=== PATIENT | female | born 1980 | race Caucasian/White ===

== ENCOUNTER 2016-06-12 20:06 | Emergency (ER) | payer SELFPAY ==
[~2016-06-12] VITALS: Ht 165.1 cm; Wt 99.8 kg
[~2016-06-12 20:06] MED LIST: ASPI-482 PO; SULF1TAB24 PO; TRIA15OI TP
[2016-06-12 20:30] VITALS: BP 104/51
--- NOTE | 2016-06-12 22:51 | PHYS DOC ---
Past Medical History Past Medical History: Anemia, Asthma Past Surgical History: Tonsillectomy, Tubal ligation Additional Past Surgical Histo: adnoids, right leg(hardware) Smoking: Less than 1pk/day Alcohol Use: None Drug Use: None Adult General Chief Complaint Chief Complaint: MECHANICAL FALL HPI HPI Patient is a 36 year old female who presents with right lower leg pain and swelling since fall 3 weeks ago. The patient relates that she slipped on the ice and hit her right lower leg on her concrete steps. She has been ambulatory since the injury. She is concerned that the hardware previously placed in her lower leg has become dislodged. She has not taken any home medications. She does not have a PCP. Review of Systems Review of Systems Constitutional: Denies fever or chills. [] Musculoskeletal: Denies back pain or joint pain. Reports right lower leg pain and swelling. Integument: Denies rash or skin lesions. Reports right lower leg ecchymosis. Neurologic: Denies focal weakness or sensory changes. [] Allergies Allergies Allergies Coded Allergies Type Severity Reaction Last Updated Verified No Known Drug Allergies 01/13/16 No Physical Exam Physical Exam Constitutional: Well developed, well nourished, no acute distress, non-toxic appearance. [] HENT: Normocephalic, atraumatic, oropharynx moist. [] Eyes: PERRLA, EOMI, conjunctiva normal, no discharge. [] Skin: Warm, dry, no erythema, no rash. There is 4 x 6 cm area of mild edema with ecchymosis over the tibia distal to the tibial tuberosity. Extremities: Right anterior tibial tenderness distal to the tibial tuberosity, ROM intact, mild edema. 2+ DP and PT pulses. There is no tenderness over the foot, ankle, or knee. Neurologic: Alert and oriented X 3, normal motor function, normal sensory function, no focal deficits noted. The patient walks with a normal steady gait without assistance. Psychologic: Affect normal, judgement normal, mood normal. [] Current Patient Data Vital Signs Vital Signs Date Time Temp Pulse Resp B/P Pulse Ox O2 Delivery O2 Flow Rate FiO2 06/12/16 20:30 97.8 75 18 99 Room Air 97.8 EKG EKG [] Radiology/Procedures Radiology/Procedures X-ray of the right tib-fib reviewed and interpreted by myself with Dr. Cornejo. There are no acute fractures or dislocations. Previously placed hardware appears intact without damage. Course & Med Decision Making Course & Med Decision Making Pertinent Labs and Imaging studies reviewed. (See chart for details) [] Dragon Disclaimer Dragon Disclaimer This electronic medical record was generated, in whole or in part, using a voice recognition dictation system. Departure Departure Impression: Primary Impression: Contusion, lower leg Disposition: HOME, SELF-CARE Condition: STABLE Referrals: KEE SMITH MD Patient Instructions: Contusion, [id number] Additional Instructions: Your xray did not show any broken bones or problems with your hardware in your leg. Please follow up with the orthopedic doctor listed below if your pain continues. Return to the emergency department if you have any new or concerning symptoms. Problem Qualifiers Primary Impression: Contusion, lower leg Encounter type: initial encounter Laterality: right Qualified Code: S80.11XA - Contusion of right lower leg, initial encounter KRISTIE ASH Jun 12, 2016 22:51
--- NOTE | 2016-06-13 08:02 | RAD ---
Indication fall 3 weeks previously. Persistent pain. AP and lateral views of the right tibia and fibula were obtained. No prior imaging is available. A long plate and screws are noted associated with the distal tibia presumably fixing previous fracture. There is deformity, compatible with a healed fracture, associated with the distal fibular diaphysis. An acute bony finding is not seen. IMPRESSION: Chronic changes. No acute finding seen
== END 2016-06-12 22:56 | disposition home or self-care (01) ==
LOC: ER 20:06
DX: S80.11XA Contusion of right lower leg, initial encounter (principal); F17.210 Nicotine dependence, cigarettes, uncomplicated; J45.909 Unspecified asthma, uncomplicated; W00.0XXA Fall on same level due to ice and snow, initial encounter; Y93.89 Activity, other specified; Y92.89 Other specified places as the place of occurrence of the external cause; Y99.8 Other external cause status
CPT/HCPCS: 73590; 99284

== ENCOUNTER 2017-11-06 01:11 | Emergency (ER) | payer SELFPAY ==
[2017-11-06 02:34] LABS: BASO # 0.1 x10^3/uL (0.0-0.2); BASO % 1 % (0-3); EOS # 0.1 x10^3/uL (0.0-0.7); EOS % 1 % (0-3); HEMATOCRIT 34.3 % (36.0-47.0); HEMOGLOBIN 10.9 g/dL (12.0-15.5); LYMPH # 3.7 x10^3/uL (1.0-4.8); LYMPH % 20 % (24-48); MEAN CORPUSCULAR HEMOGLOBIN 20 pg (25-35); MEAN CORPUSCULAR HGB CONC 32 g/dL (31-37); MEAN CORPUSCULAR VOLUME 62 fL (79-100); MONO # 1.2 x10^3/uL (0.0-1.1); MONO % 6 % (0-9); NEUT # 13.4 x10^3uL (1.8-7.7); NEUT % 73 % (31-73); PLATELET COUNT 348 x10^3/uL (140-400); RED BLOOD COUNT 5.57 x10^6/uL (3.50-5.40); RED CELL DISTRIBUTION WIDTH 18.7 % (11.5-14.5); WHITE BLOOD COUNT 18.5 x10^3/uL (4.0-11.0)
[2017-11-06 02:37] LABS: BILIRUBIN,URINE NEGATIVE (NEG); CLARITY,URINE CLEAR; COLOR,URINE YELLOW; GLUCOSE,URINE NEGATIVE (NEG); NITRITE,URINE NEGATIVE (NEG); PH,URINE 5.5; PROTEIN,URINE NEGATIVE (NEG-TRACE); UROBILINOGEN,URINE 0.2 mg/dL (0.2 mg/dL)
[2017-11-06] MEDS: IV NORMAL SALINE 1000ML BAG 1,000 ML IV (03:03)
[2017-11-06] MEDS: KETOROLAC 15 MG/ML VIAL. IV ×2 (03:03→04:31)
[2017-11-06] MEDS: ONDANSETRON PF 4 MG/2 ML VIAL. IV (03:03)
[2017-11-06 03:06] LABS: ADD MAN DIFF? YES
[2017-11-06 03:12] LABS: ANION GAP 13 (6-14); BLOOD UREA NITROGEN 18 mg/dL (7-20); BUN/CREATININE RATIO 18 (6-20); CALCIUM 9.3 mg/dL (8.5-10.1); CARBON DIOXIDE 25 mmol/L (21-32); CHLORIDE 100 mmol/L (98-107); GFR 63.1; GLUCOSE 121 mg/dL (70-99); POTASSIUM 3.4 mmol/L (3.5-5.1); SODIUM 138 mmol/L (136-145)
[2017-11-06 03:15] LABS: NEG OBC SER NEG; POS OBC SER POS; PREG TEST PT QUAL NEGATIVE (NEG)
[2017-11-06 03:16] LABS: RBC,URINE 0 /HPF (0-2)
[2017-11-06 03:17] LABS: BACTERIA,URINE FEW /HPF (0-FEW); SQUAMOUS EPITHELIAL CELL,UR MOD /LPF
[2017-11-06 03:19] LABS: ALBUMIN 4.2 g/dL (3.4-5.0); ALK PHOS 75 U/L (46-116); ALT (SGPT) 30 U/L (14-59); AST (SGOT) 15 U/L (15-37); LIPASE 121 U/L (73-393); TOTAL BILIRUBIN 0.3 mg/dL (0.2-1.0); TOTAL PROTEIN 8.5 g/dL (6.4-8.2)
[2017-11-06 04:15] LABS: % EOS 1 % (0-5); % LYMPHS 25 % (24-48); % MONOS 4 % (0-10); % SEGS 70 % (35-66); ANISOCYTOSIS SLIGHT; PLT ESTIMATE ADEQUATE (ADEQUATE); POLYCHROMASIA SLIGHT
[2017-11-06 04:16] LABS: HYPOCHROMIA MOD; MICROCYTOSIS MOD
[2017-11-06] MEDS ORDERED: CONTRAST GIVEN. MC (04:30)
[2017-11-06] MEDS: IOHEXOL 300 MG/ML 100ML VIAL. IV (04:52)
[2017-11-06] MEDS: MORPHINE SULFATE 4 MG/ML DISP.SYRIN. IV (05:14)
[2017-11-06] MEDS: cefTRIAXone IV Push 1 GM VIAL. IVP (06:03)
[2017-11-06] MEDS: POTASSIUM CHLORIDE 20 MEQ TABLET.ER. PO (07:00)
[2017-11-07] MEDS ORDERED: cefTRIAXone IV Push 1 GM VIAL. IVP (06:00)
== END 2017-11-06 07:00 | disposition home or self-care (01) ==
LOC: ER 01:11
DX: N39.0 Urinary tract infection, site not specified (principal); K57.30 Diverticulosis of large intestine without perforation or abscess without bleeding; E87.6 Hypokalemia; J45.909 Unspecified asthma, uncomplicated; Z98.51 Tubal ligation status
CPT/HCPCS: 36415; 74177; 76705; 80053; 81001; 83690; 84703; 85007; 85025; 87086; 93005; 96361; 96374; 96375; 96376; 99285-25; J0696; J1885; J2270; J2405; J7030; Q9967